=== PATIENT | male | born 1965 | race American Indian/Alaskan Native ===

== ENCOUNTER 2018-08-29 09:43 | Day surgery (SDC) | payer OTHER ==
[~2018-08-29 09:43] MED LIST: NACL 0.9% 1000 ML 1,000 ML IV SCH
--- NOTE | 2018-08-29 11:49 | Anesthesia Day of Surgery ---
Anesthesia Day of Surgery - Day of Surgery Patient Examined: Yes Patient H&P Reviewed: Yes Patient is NPO: Yes
--- NOTE | 2018-08-29 11:51 | Anesthesia Consultation ---
Anesthesia Consult and Med Hx Date of service: 08/29/18 - Airway Anesthetic Teeth Evaluation: Good ROM Head & Neck: Adequate Mental/Hyoid Distance: Adequate Mallampati Class: Class III Intubation Access Assessment: Possibly Difficult - Pre-Operative Health Status ASA Pre-Surgery Classification: ASA3 Proposed Anesthetic Plan: MAC - Pulmonary Hx Smoking: Yes (quit 1 yr ago) - Cardiovascular System Hx Hypertension: Yes - Central Nervous System Hx Back Pain: Yes - Other Systems Hx Substance Use: Yes (MARIJUANA) Hx Obesity: Yes
[2018-08-29] MEDS ORDERED: WATER FOR IRRIG STERILE IR ONE (12:27)
[2018-08-29] MEDS ORDERED: WATER FOR IRRIG STERILE ONE (12:27)
[2018-08-29] MEDS ORDERED: DIPRIVAN 10 MG/ML IV ONE ×2 (12:46)
[2018-08-29] MEDS ORDERED: XYLOCAINE 1% 20 mL ONE (12:46)
--- NOTE | 2018-08-29 14:48 | Operative Report ---
Operative Report Operative Report: Procedure: Colonoscopy. Attending physician: Jersey Diaz MD Tube Builder Airplane: Jersey Diaz MD Indication: Patient is a 53-year-old male who presents for colonoscopy for colorectal cancer screening . A colonoscopy serves to evaluate patient so that treatment may be directed based on the findings. Consent: Informed consent was obtained after advising the patient and family regarding nature of this procedure, its indications, potential benefits as well as possible complications including but not limited to bleeding perforation and adverse reaction to medication, infection as well as other cardiopulmonary complications. An informed written and verbal consent was then obtained after due opportunity was provided for questions and answers. Monitoring: Patient was monitored continuously with pulse oximetry and electrocardiographic recordings as well as blood pressure recordings. Vital signs remained stable throughout this procedure with no untoward events. Preoperative assessment: Patient was assessed immediately prior to this procedure for capacity to tolerate monitored anesthesia care and moderate sedation as well as general anesthesia. Patient's ASA classification is 2, Mallampati class is 2, Hyomental distance is 3. Instrument: [place] Median video colonoscope Medications: Propofol given intravenously in divided doses. For details please refer to anesthesia records. Description of procedure: Patient was placed in the left lateral decubitus position after achieving sedation, a digital rectal examination was performed following which the colonoscope was introduced into the anal verge and advanced to the cecum which was identified by the ileocecal valve, the appendiceal orifice, as well as by the cecal strap and direct transillumination. The colonoscope was subsequently withdrawn with careful inspection of all mucosal surfaces. Patient tolerated this procedure well and was subsequently taken to the recovery room. The following findings were noted. Findings: Patient had some scattered retained liquid and semisolid stool in sections of the colon. There were diminutive diverticula in the sigmoid colon. On the retroflex view at the anal verge, patient had internal hemorrhoids . Impression: Diminutive diverticula. Retained stool Internal hemorrhoids. Plan: High-fiber diet. Prn stool softeners. Repeat colonoscopy in 1 year due to retained stool.
--- NOTE | 2018-08-29 14:49 | Discharge Summary ---
Short Stay Discharge Plan Activity: advance as tolerated Weight Bearing Status: Weight Bear as Tolerated Diet: regular Additional Instructions: Post Sedation D/C Instructions When you return home you may resume your regular diet unless otherwise directed. -Go directly home from the hospital and rest quietly. You may resume normal activities tomorrow. -Do NOT drive, return to work, operate any machinery or make any important personal or business decisions today. -Do NOT drink any alcohol or take nerve or sleeping drugs. They add to the effects of the medicine still present in your body. PLEASE TAKE A DAILY FIBER WITH PLENTY OF LIQUIDS Follow up with: OK CURIEL MD [Primary Care Provider] - 7 Days
[2018-08-29 15:16] VITALS: BP 129/77
== END 2018-08-29 09:44 | disposition home or self-care (01) ==
LOC: GIO 09:43
PROVIDERS: ATTEND Internal Medicine Gastroenterology
DX: Z12.11 Encounter for screening for malignant neoplasm of colon (principal); K57.30 Diverticulosis of large intestine without perforation or abscess without bleeding; K64.8 Other hemorrhoids; F17.210 Nicotine dependence, cigarettes, uncomplicated; I10 Essential (primary) hypertension; E66.9 Obesity, unspecified; Z68.34 Body mass index [BMI] 34.0-34.9, adult; Z79.899 Other long term (current) drug therapy; Z98.890 Other specified postprocedural states
CPT/HCPCS: 45378; J2704; J7030